=== PATIENT | male | born 1980 ===

== ENCOUNTER 2017-08-02 00:10 | Inpatient (IN) | payer MEDICAID ==
[2017-08-02] VITALS (23 sets, daily range): BP systolic 92–127; BP diastolic 56–84
[~2017-08-02] VITALS: Ht 170.2 cm; Wt 103.0 kg
--- NOTE | 2017-08-02 00:15 | NUR ---
SNORING RESPIRATIONS AND ACCESSORY MUSCLES BEING USED.PT STILL REMAINS UNRESPONSIVE TO PAINFUL OR TACTILE STIMULI.
--- NOTE | 2017-08-02 00:20 | NUR ---
NAECAN 2 MG IV GIVEN LT AC.NO CHANGE IN CONDITION.ERMD INFORMED
--- NOTE | 2017-08-02 00:22 | NUR ---
NARCAN 2NG IV GIVEN IN LT AC.NO RESULTS NOTED.ERMD AT BEDSIDE WITH RT AND NURSES.PT HAS NO GAG REFLEX
--- NOTE | 2017-08-02 00:27 | NUR ---
PT SUCTIONED FOR LARGE AMT OF FOOD CHUNKS.
--- NOTE | 2017-08-02 00:34 | NUR ---
ETOMIDATE 20 MG IV GIVEN IN LT AC.
--- NOTE | 2017-08-02 00:35 | NUR ---
PT INTUBATED ORALLY WITH 7.5 ET TUBE AND PLACED ON VENT / 21 AT THE LIP.
--- NOTE | 2017-08-02 00:36 | NUR ---
Pt intubated by Dr Kumari in ER with 7.5 ETT~21cm at lip line and at 00:47 placed on Car vent with the following settings of AC-18, Vt-600, FIO2-50%. Pt sedated. Airway care done, pt responded to physical stimuli. Sputum sent to the lab per protocol. Resus. bag at bedside. Vent and alarms on and audible.
[2017-08-02 00:55] LABS: BASOPHILS % (AUTO) 0.4 % (0.0-2.0); EOSINOPHILS # (AUTO) 0.1 K/uL (0.0-0.7); EOSINOPHILS % (AUTO) 1.8 % (0.0-7.0); HEMATOCRIT 44.5 % (40-50); HEMOGLOBIN 14.5 G/DL (14.0-18.0); LYMPHOCYTES # (AUTO) 2.7 K/UL (0.8-4.8); MEAN CORPUSCULAR HEMOGLOBIN 28.8 UUG (27.0-31.0); MEAN CORPUSCULAR HGB CONC 33 g/dL (32.0-37.0); MEAN CORPUSCULAR VOLUME 88.7 FL (82.0-92.0); MONOCYTES # (AUTO) 0.6 K/UL (0.1-1.30); NEUTROPHILS # (AUTO) 3.9 K/UL (1.8-8.9); NEUTROPHILS % (AUTO) 52.8 % (38.5-71.5); PLATELET COUNT (AUTO) 221 K/UL (150-450); RED BLOOD CELL COUNT(AUTO) 5.01 MIL/UL (4.7-6.1); WHITE BLOOD COUNT (AUTO) 7.3 K/UL (4.0-11.2)
[2017-08-02 01:09] LABS: ETHANOL < 3 MG/DL (0-0)
--- NOTE | 2017-08-02 01:10 | NUR ---
Pt went to CT scan with two RT's and RN at bedside on vent.
[2017-08-02 01:14] LABS: ALANINE AMINOTRANSFERASE 35 U/L (16-63); ALKALINE PHOSPHATASE 62 U/L (50-136); ASPARTATE AMINOTRANSFERASE 30 U/L (15-37); BILIRUBIN,DIRECT 0.1 mg/dL (0.0-0.2); BILIRUBIN,TOTAL 0.3 mg/dL (0.2-1.0); CARBON DIOXIDE 30 mmol/L (21-32); CHLORIDE 111 mmol/L (98-107); CREATININE 1.2 mg/dL (0.6-1.3); GLUCOSE 120 mg/dL (74-106); POTASSIUM 3.9 mmol/L (3.5-5.1); TOTAL PROTEIN, SERUM 7.6 g/dL (6.4-8.2); UREA NITROGEN, BLOOD 21 mg/dL (7-18)
[2017-08-02 01:15] LABS: ACETAMINOPHEN < 2.0 ug/mL (10-30)
--- NOTE | 2017-08-02 01:26 | NUR ---
Pt back from CT scan. No distress noted
[2017-08-02 01:38] LABS: THYROID STIMULATING HORMONE 2.398 mIU/mL (0.358-3.740)
[2017-08-02 02:11] LABS: ABG BASE EXCESS -3.2 mmol/L; ABG HCO3 23.7 mmol/L; ABG PCO2 49.4 mmHg (35.0-45.0); ABG PH 7.298 (7.350-7.450); ABG PO2 142.2 mmHg (75.0-100.0); ABG SITE RIGHT RADIAL; ABG TOTAL HEMOGLOBIN 14.2 G/dL (13.5-18.0); COHb 1.2 % (0.5-1.5); MetHb 0.1 % (0.0-1.5); O2Hb 96.9 % (94.0-97.0); VENT MODE VENT - A/C; VT, ABG 600 mL
--- NOTE | 2017-08-02 02:18 | NUR ---
ABG done, results reported to Dr. Kumari. Per Dr. Kumari, increase respiratory rate to 20. No distress noted at this time. SpO2 100%.
--- NOTE | 2017-08-02 02:20 | NUR ---
Pt waking up. Tritrated Propofol to 20 mcg/kg/min
--- NOTE | 2017-08-02 02:53 | NUR ---
UROLOGIST WRIST CLOSER PAGED AT THIS TIME.
--- NOTE | 2017-08-02 03:25 | NUR ---
Upon setting up to place ma catheter, a rubber ring was found to be stretched around pt's penis and testicles. RN, Marie, placed ma catheter using aseptic technique, no urine return. Upon removal moments later, blood was found in catheter, clotted. A second attempt to place a catheter met with geetha blood in the tube. MD notified and will get urology consult.
--- NOTE | 2017-08-02 03:26 | NUR ---
RN, Marie, performed bladder scan. 663ml indicated
--- NOTE | 2017-08-02 03:30 | NUR ---
pt urinated on himself, cleaned and placed in hospital bed. condom catheter applied, per .
[2017-08-02 04:03] LABS: *BILIRUBIN,URIN NEGATIVE (NEGATIVE); *CLARITY,URINE TURBID (CLEAR); *COLOR,URINE RED (YELLOW); *KETONES,URINE NEGATIVE (NEGATIVE); *PROTEIN,URINE 1+ (NEGATIVE); *UROBILINOGEN,URINE 0.2 E.U./dl (NORMAL); LEUKOCYTE ESTERASE ,URINE NEGATIVE (NEGATIVE); NITRITE, URINE NEGATIVE (NEGATIVE); PH,URINE 6.5 (5.0-8.0); UGLUCOSE NEGATIVE (NEGATIVE)
[2017-08-02 04:05] LABS: *BLOOD, URINE 3+ (NEGATIVE)
[2017-08-02 04:07] LABS: BACTERIA,URINE NONE SEEN /HPF (NONE SEEN); RBC,URINE TNTC /HPF (0-3); SQUAMOUS EPITHELIAL CELL,UR NONE SEEN /HPF (NONE SEEN); WBC,URINE 0-3 /HPF (0-3)
--- NOTE | 2017-08-02 04:10 | NUR ---
Pt waking, titrated propofol to 40mcg/kg/min
--- NOTE | 2017-08-02 04:15 | NUR ---
Urine sample obtained from condom catheter bag, taken to lab. Heavy traces of blood evident.
[2017-08-02 04:58] LABS: *AMPHETAMINE, URINE POSITIVE (NEGATIVE); *BARBITURATE, URINE NEGATIVE (NEGATIVE); *CANNABINOID, URINE NEGATIVE (NEGATIVE); *COCCAINE, URINE POSITIVE (NEGATIVE); *OPIATE, URINE NEGATIVE (NEGATIVE); *PHENCYCLIDINE SCREEN,URINE NEGATIVE (NEGATIVE)
--- NOTE | 2017-08-02 05:04 | NUR ---
Pt waking again, still biting at ETT.
--- NOTE | 2017-08-02 05:50 | NUR ---
Condom catheter came off, new one applied.
--- NOTE | 2017-08-02 06:51 | NUR ---
Clemente garzon in [facility] - 08/02/17 at 0653 by RAMOS Condom catheter came off, new one applied.
--- NOTE | 2017-08-02 07:00 | NUR ---
RECEIVED PT ON CONTINUOUS VENT AC 20 VT 600 FIO2 50% . ETT 7.5 SECURED AT 21 CM LIPLINE VIA ANCHOR FAST. BS EQUAL BILAT FAIRLY CLEAR. SUCTION TRACE AMOUNT THIN WHITE SECRETIONS. VENT CHECKED, ALARMS WORKING WELL AND AUDIBLE.AMBU BAG AT BEDSIDE. PT TRANSPORTED TO CCU 2 WITHOUT INCIDENT NOTED. NO VENT CHANGES MADE AT THIS TIME. WILL CONTINUE TO MONITOR.
--- NOTE | 2017-08-02 07:26 | NUR ---
Gave report bedside to ICU staff RNs.
--- NOTE | 2017-08-02 07:40 | NUR ---
received pt from ER with DX: drug overdose and respiratory failure .pt intubated and sedated on propofol.pt doesn't follow commands on and off restless and agitated able to moved upper and lower extremities .condom catheter in place ,no urine output in the bag as per ER NURSE he voided 350 ml of urine ,SUPERINTENDENT COMPRESSOR STATIONS place Garzon catheter but remove it because pt had blood clots with consult to urologist . . no family members noted and no belongings . continue to monitor vital signs and levels of comfort .
--- NOTE | 2017-08-02 08:20 | NUR ---
DR:EUGENE came and evaluated pt .inserted coude catheter no.16 F
--- NOTE | 2017-08-02 08:50 | NUR ---
Lidocaine administered by physician.
--- NOTE | 2017-08-02 10:08 | NUR ---
Clinical Pharmacy Note: Vancomycin Dosing per Pharmacy Subjective: Vancomycin IV to continue on this 37 yo male patient [place] (substance abuse- waiting for MD note). ht 5' 9'' wt 236 lb Objective: BUN 21 Scr 1.2 (08/01) WBC 7.3 (08/01) Temperature 95.1 Assessment/Plan: Will start vanco 1750mg IV q13hr for a predicted vancomycin steady state trough level of 16 mcg/ml at steady state. 1st dose was due at 0900 today. Will draw a vancomycin trough level prior to the 4th dose of vancomycin (not yet ordered). Will monitor renal function & adjust dose if needed. Will continue to monitor
--- NOTE | 2017-08-02 10:39 | NUR ---
DR: BRITTANI came and saw pt for respiratory consult .report given to .
--- NOTE | 2017-08-02 11:40 | NUR ---
rn case mgr notified to verify patients family contact and identity .
--- NOTE | 2017-08-02 12:30 | NUR ---
prn Ativan given for agitation and anxiety see emar.
--- NOTE | 2017-08-02 18:53 | NUR ---
endorsed pt to the incoming RN using the sbar ,pt remains intubated and sedated on propofol. still no family at bedside ..
--- NOTE | 2017-08-02 19:30 | NUR ---
Report received. Patient orally intubated and to mechanical ventilator with settings as follows: ME=156 ml, AC=20, FIO2=50%. Sedated; on continuous Diprivan drip at 50 mcg/kg/min. Assessment completed; refer to flow sheet for details. Addendum: 08/02/17 at 2050 by JOAQUIN DOMINGUEZ RN Amended: Links added.
--- NOTE | 2017-08-02 19:45 | NUR ---
Turned and repositioned. Skin care provided. Sedation vacation done. Addendum: 08/02/17 at 2052 by JOAQUIN DOMINGUEZ RN Amended: Links added.
--- NOTE | 2017-08-02 19:47 | NUR ---
Patient received on [employer] Car settings AC 20, VT 600 and FIO2-50%. No resp. distress noted at this time. 7.[address] patent and secure at approx. 21cm now repositioned to the right lip line. Pt to be monitored throughout the shift and PRN SX. Car alarm parameters have been checked and remain audible at this time.
--- NOTE | 2017-08-02 20:05 | NUR ---
Started opening eyes to name calls and gagging after 7 minutes of sedation vacation. Withdraws extremities to pain. Coughing and gagging with suctioning and oral care. Lindsay delacruz resumed. Addendum: 08/02/17 at 2056 by JOAQUIN DOMINGUEZ RN Amended: Links added.
--- NOTE | 2017-08-02 22:15 | NUR ---
Patient mildly restless, moving extremities. HR up to 106, ST. Ativan IV given. Addendum: 08/02/17 at 2309 by JOAQUIN DOMINGUEZ RN Amended: Links added. Addendum: 08/02/17 at 2310 by JOAQUIN DOMINGUEZ RN Amended: Links added. Addendum: 08/02/17 at 2311 by JOAQUIN DOMINGUEZ RN Amended: Links added.
--- NOTE | 2017-08-02 23:00 | NUR ---
Ativan effective. Addendum: 08/03/17 at 0528 by JOAQUIN DOMINGUEZ RN Amended: Links added.
[2017-08-03] VITALS (24 sets, daily range): BP systolic 108–139; BP diastolic 70–95
--- NOTE | 2017-08-03 | NUR ---
With small amount of bleeding from penile orifice; no hematuria. Addendum: 08/03/17 at 0532 by JOAQUIN DOMINGUEZ RN Amended: Links added.
--- NOTE | 2017-08-03 05:01 | NUR ---
Pt remains on Car with no changes made to the ventilator settings. No resp. distress noted at this time. 7.[address], patent and secure now placed on the left side of the pt's lipline @ approx 21 cm. Car alarm parameters have been checked and remain audible at this time. Pt was routinely sx'd and appeared to tolerate ventilator settings well.
[2017-08-03 05:12] LABS: BASOPHILS % (AUTO) 0.3 % (0.0-2.0); EOSINOPHILS # (AUTO) 0.1 K/uL (0.0-0.7); EOSINOPHILS % (AUTO) 1.7 % (0.0-7.0); HEMATOCRIT 39.6 % (40-50); HEMOGLOBIN 12.9 G/DL (14.0-18.0); LYMPHOCYTES # (AUTO) 1.9 K/UL (0.8-4.8); LYMPHOCYTES % (AUTO) 26.9 % (20.5-51.5); MEAN CORPUSCULAR HEMOGLOBIN 29.3 UUG (27.0-31.0); MEAN CORPUSCULAR HGB CONC 33 g/dL (32.0-37.0); MEAN CORPUSCULAR VOLUME 89.6 FL (82.0-92.0); MONOCYTES # (AUTO) 0.5 K/UL (0.1-1.30); MONOCYTES % (AUTO) 7.2 % (0.0-11.0); NEUTROPHILS # (AUTO) 4.6 K/UL (1.8-8.9); NEUTROPHILS % (AUTO) 63.9 % (38.5-71.5); PLATELET COUNT (AUTO) 178 K/UL (150-450); RED BLOOD CELL COUNT(AUTO) 4.42 MIL/UL (4.7-6.1); WHITE BLOOD COUNT (AUTO) 7.1 K/UL (4.0-11.2)
[2017-08-03 06:04] LABS: ALANINE AMINOTRANSFERASE 24 U/L (16-63); ALKALINE PHOSPHATASE 48 U/L (50-136); ASPARTATE AMINOTRANSFERASE 20 U/L (15-37); CARBON DIOXIDE 27 mmol/L (21-32); CHLORIDE 107 mmol/L (98-107); CHOLESTEROL 138 mg/dL (<200); CREATININE 0.8 mg/dL (0.6-1.3); GLUCOSE 105 mg/dL (74-106); MAGNESIUM 1.7 mg/dL (1.8-2.4); PHOSPHOROUS 2.4 mg/dL (2.5-4.9); POTASSIUM 3.4 mmol/L (3.5-5.1); TOTAL PROTEIN, SERUM 6.2 g/dL (6.4-8.2); TRIGLYCERIDES 47 MG/DL (30-150); UREA NITROGEN, BLOOD 8 mg/dL (7-18)
--- NOTE | 2017-08-03 06:30 | NUR ---
Stable all night. With Diprivan drip now at 45 mcg/kg/min (dose recalculated to today's mederk=669 lbs (103 kg). Opens eyes to verbal stimuli. With good cough reflex with suctioning. Still with bilateral wrist restraints for safety.
[2017-08-03 06:32] LABS: BILIRUBIN,TOTAL < 0.1 mg/dL (0.1-1.0); HDL CHOLESTEROL 74 mg/dL (40-60)
--- NOTE | 2017-08-03 07:30 | NUR ---
received pt orally intubated on ventilator ac mode rate of 20 / tv 600 /fio2 50% .pt tolerating vent setting no respiratory distress breathing even and unlabored .pt sedated on propofol ,restraints protocol implemented protocol observed for patient safety .Garzon catheter in place patent and with adequate urinary output yellowish in color .pt on and off nod head to verbal stimulation ,open eyes .pt able to moved upper and lower extremities.continue to monitor and vitals signs and levels of comfort.
--- NOTE | 2017-08-03 08:30 | NUR ---
sedation vacation done wean propofol to 20 mcg /kg /min ,pt open eyes and able to shake head to simple yes and no questions at times gets restless and anxious reoriented to time and place .pt is sleeping on and off .respiratory therapist is coming to do cpap at 0900
[2017-08-03 10:32] LABS: ABG BASE EXCESS 0.9 mmol/L; ABG HCO3 24.6 mmol/L; ABG PCO2 36.2 mmHg (35.0-45.0); ABG PO2 210.2 mmHg (75.0-100.0); ABG SITE RIGHT RADIAL; ABG TOTAL HEMOGLOBIN 13.4 G/dL (13.5-18.0); MetHb 0.1 % (0.0-1.5); O2Hb 98.4 % (94.0-97.0); VENT MODE CPAP
--- NOTE | 2017-08-03 10:55 | NUR ---
called : DORI jaimes and called back dictated ABG results and patients status and condition will order to extubate and to titrate fio2 > 93 %. called chelsea respiratory therapist and informed her.
--- NOTE | 2017-08-03 11:50 | NUR ---
DR : BRITTANI came and rounded and report given to MD .MD spoke with patient.
--- NOTE | 2017-08-03 11:53 | NUR ---
Patient was received on Car Ventilator with ordered settings of AC 20, Vt600, FiO2 5%. He is intubated with a 7.5 Ettube, 21cm lipline. No signs of respiratory distress noted at this time. Anchorfast in place for skin integrity. Oral care rendered and HME was changed. Patient following commands. Changed to CPAP PSV 6 with 50% FiO2 at 0900 per MD order. Patient tolerated change well, no signs of respiratory distress noted at this time. ABG results (after 1 hour) indicative of successful extubation. Per MD order, PT was successfully extubated with the assistance of Velma MARTIN and placed on 2LpmO2 via nasal cannula. is oriented and following commands. No complications noted after procedure. Will continue to monitor. Ambubag at bedside.
--- NOTE | 2017-08-03 11:53 | NUR ---
pt extubated by respiratory therapist Ada burnsted pt now on nasal cannula at 2 liter /min .
--- NOTE | 2017-08-03 12:30 | NUR ---
bedside nursing swallow evaluation done pt passed . pt able to swallow without difficulty
--- NOTE | 2017-08-03 13:19 | NUR ---
patients looking for his partner /boyfriend unable to recall telephone number . voice messages left to the cellphone given by patient but no answer .patient is somewhat depressed and feeling frustrated to be in the hospital .denies any suicidal thought of ideation or thinking of harming self. pt wises to sign AMA.case manager specialist was called and notified .
--- NOTE | 2017-08-03 14:14 | NUR ---
spoke to DR MARTINEZ and updated MD with pts status and condition and informed MD patient want to go home as per MD he is coming very soon to see patient.
--- NOTE | 2017-08-03 14:58 | NUR ---
DR:HARRIETT MENDOZA came and spoke with patients desires to go home .
[2017-08-03] MEDS ORDERED: NAPR500T3 PO (15:38)
[2017-08-03] MEDS ORDERED: METO-295 PO (15:39)
[2017-08-03] MEDS ORDERED: ESOM20CA PO (15:41)
[2017-08-03] MEDS ORDERED: SPIR25TA PO (15:45)
[2017-08-03] MEDS ORDERED: MULT1TAB73 PO (15:48)
[2017-08-03] MEDS ORDERED: CHOL100022 PO (15:48)
[2017-08-03] MEDS ORDERED: HYDR25CA PO (15:50)
[2017-08-03] MEDS ORDERED: BUPR200T2 PO (15:52)
[2017-08-03] MEDS ORDERED: CHLO118L TP (15:53)
[2017-08-03] MEDS ORDERED: MUPI22OI2 TP (15:55)
[2017-08-03] MEDS ORDERED: ELVI1TAB3 PO (15:57)
[2017-08-03] MEDS ORDERED: TRIA15CR2 TP (16:06)
[2017-08-03] MEDS ORDERED: CLOT30LO2 TP (16:08)
--- NOTE | 2017-08-03 18:59 | NUR ---
endorse using the SBARQ ,pt aaox4/maex4. no respiratory distress on room air .at times patient verbalized he wants to go home but on the side saying his very weak . ate dinner 100%. Addendum: 08/03/17 at 1902 by CARA JEAN BAPTISTE RN continue to monitor vital and levels of comfort.
--- NOTE | 2017-08-03 19:30 | NUR ---
Report received. Patient sleeping arouses to name and answer questions but still sleepy. NAD noted. On room air; sat 97%. Addendum: 08/03/17 at 2034 by JOAQUIN DOMINGUEZ RN Amended: Links added.
[2017-08-04] VITALS (9 sets, daily range): BP systolic 102–125; BP diastolic 51–78
--- NOTE | 2017-08-04 | NUR ---
Sleeping most of the time. Easily arousable, but appears withdrawn and depressed. VS stable. Addendum: 08/04/17 at 0541 by JOAQUIN DOMINGUEZ RN Amended: Links added.
--- NOTE | 2017-08-04 04:30 | NUR ---
Lab here. for am blood draw. Patient awake, but remains withdrawn, passive. Am bath given. Patient cooperative. Verbalized concern over his boyfriend. Teary-eyed. "Has my boyfriend called?" patient asked. Wants the bedside phone next to him. When asked where they [place], [place] ([facility] [place] Patient doesn't remember events; reoriented and reassured appropriately. Addendum: 08/04/17 at 0554 by JOAQUIN DOMINGUEZ RN Amended: Links added.
[2017-08-04 04:58] LABS: BASOPHILS % (AUTO) 0.4 % (0.0-2.0); EOSINOPHILS # (AUTO) 0.2 K/uL (0.0-0.7); EOSINOPHILS % (AUTO) 2.2 % (0.0-7.0); HEMATOCRIT 43.3 % (40-50); LYMPHOCYTES # (AUTO) 2.5 K/UL (0.8-4.8); LYMPHOCYTES % (AUTO) 33.9 % (20.5-51.5); MEAN CORPUSCULAR HEMOGLOBIN 28.6 UUG (27.0-31.0); MEAN CORPUSCULAR HGB CONC 33 g/dL (32.0-37.0); MONOCYTES # (AUTO) 0.7 K/UL (0.1-1.30); MONOCYTES % (AUTO) 9.6 % (0.0-11.0); NEUTROPHILS # (AUTO) 4.1 K/UL (1.8-8.9); NEUTROPHILS % (AUTO) 53.9 % (38.5-71.5); PLATELET COUNT (AUTO) 201 K/UL (150-450); RED BLOOD CELL COUNT(AUTO) 4.92 MIL/UL (4.7-6.1); WHITE BLOOD COUNT (AUTO) 7.5 K/UL (4.0-11.2)
[2017-08-04 05:13] LABS: BILIRUBIN,TOTAL 0.6 mg/dL (0.2-1.0); CREATININE 0.7 mg/dL (0.6-1.3); PHOSPHOROUS 2.6 mg/dL (2.5-4.9); TOTAL PROTEIN, SERUM 7.2 g/dL (6.4-8.2)
--- NOTE | 2017-08-04 10:00 | NUR ---
Pt discharged back home to [facility] and picked up by friend. Discharge instructions provided and discussed with the pt. Meds reconciled by MD and reviewed with the pt. Pt verbalized understanding of discharge instructions and medications. Homeless resources provided and discussed with regional sales manager at the bedside. PIV removed. All belongings reviewed and returned to the pt. Discharge photos taken and placed in chart. Pt stable and nad noted upon discharge.
== END 2017-08-04 10:00 | disposition home or self-care (01) | DRG 812 ==
LOC: ER 00:10 → CCU 07:10
PROVIDERS: ADMIT Internal Medicine; ATTEND Internal Medicine
PROC: 0T9B70Z Drainage of Bladder with Drainage Device, Via Natural or Artificial Opening (ICD-10-PCS; principal; 2017-08-02)
PROC: 5A1945Z Respiratory Ventilation, 24-96 Consecutive Hours (ICD-10-PCS; principal; 2017-08-02)
PROC: 0BH17EZ Insertion of Endotracheal Airway into Trachea, Via Natural or Artificial Opening (ICD-10-PCS; principal; 2017-08-02)
DX: T43.621A Poisoning by amphetamines, accidental (unintentional), initial encounter (principal); N17.0 Acute kidney failure with tubular necrosis; J96.01 Acute respiratory failure with hypoxia; J96.02 Acute respiratory failure with hypercapnia; G92 Toxic encephalopathy; T40.5X1A Poisoning by cocaine, accidental (unintentional), initial encounter; Y92.830 Public park as the place of occurrence of the external cause; E87.0 Hyperosmolality and hypernatremia; Z59.0 Homelessness; E66.9 Obesity, unspecified; Z68.35 Body mass index [BMI] 35.0-35.9, adult; R33.9 Retention of urine, unspecified; E87.6 Hypokalemia; R31.9 Hematuria, unspecified; S00.81XA Abrasion of other part of head, initial encounter; X58.XXXA Exposure to other specified factors, initial encounter; K21.9 Gastro-esophageal reflux disease without esophagitis; E87.2 Acidosis; E83.39 Other disorders of phosphorus metabolism; D64.9 Anemia, unspecified
CPT/HCPCS: 36415; 36600; 70030-TC; 70450; 71010; 72125; 80307; 83605; 83735; 84100; 84443; 85025; 85730; 87040; 87070; 87086; 93005; 94002; 94640; A4663; C9113; G0480; G0480-TC; J0330; J0696; J1650; J2060; J2310; J3370; J3475; J3490; J7030; J7050; J7060